=== PATIENT | male | born 1995 | race Caucasian/White ===

== ENCOUNTER 2023-11-02 13:20 | Emergency (ER) | payer BC, OTHER ==
[~2023-11-02] VITALS: Ht 172.7 cm; Wt 82.1 kg
[2023-11-02 13:24] VITALS: O2SAT 99
[2023-11-02 14:09] LABS: BASOPHILS # (AUTO) 0.3 K/UL (0.0-0.2); BASOPHILS % (AUTO) 2.5 % (0.0-2.0); EOSINOPHILS # (AUTO) 0.2 K/uL (0.0-0.7); EOSINOPHILS % (AUTO) 1.6 % (0.0-7.0); HEMATOCRIT 47.1 % (36.7-47.1); HEMOGLOBIN 15.7 g/dL (12.5-16.3); LYMPHOCYTES % (AUTO) 18.6 % (20.5-51.5); MEAN CORPUSCULAR HEMOGLOBIN 27.9 uug (23.8-33.4); MEAN CORPUSCULAR HGB CONC 33 g/dL (32.5-36.3); MEAN CORPUSCULAR VOLUME 83.7 fL (73.0-96.2); MONOCYTES # (AUTO) 0.7 K/uL (0.1-1.30); MONOCYTES % (AUTO) 6.8 % (0.0-11.0); NEUTROPHILS # (AUTO) 7.7 K/uL (1.8-8.9); NEUTROPHILS % (AUTO) 70.5 % (38.5-71.5); PLATELET COUNT (AUTO) 160 K/uL (152-348); RED BLOOD CELL COUNT(AUTO) 5.62 MIL/uL (4.06-5.63); RED CELL DISTRIBUTION WIDTH 13.5 % (12.1-16.2); WHITE BLOOD COUNT (AUTO) 10.9 K/uL (3.6-10.2)
[2023-11-02 14:19] LABS: DIFFERENTIAL COMMENT 1
[2023-11-02 14:20] LABS: CALCIUM 9.1 mg/dL (8.5-10.1); CARBON DIOXIDE 27 mmol/L (21-32); CHLORIDE 100 mmol/L (98-107); CREATININE 0.6 mg/dL (0.6-1.3); POTASSIUM 4.1 mmol/L (3.5-5.1); SODIUM SERUM 135 mmol/L (136-145); UREA NITROGEN, BLOOD 10 mg/dL (7-18)
[2023-11-02 14:24] LABS: GLUCOSE 460 mg/dL (74-106)
[2023-11-02 14:29] LABS: ALANINE AMINOTRANSFERASE 19 U/L (16-63); ALBUMIN 3.3 g/dL (3.4-5.0); ALKALINE PHOSPHATASE 145 U/L (50-136); BILIRUBIN,DIRECT 0.2 mg/dL (0.0-0.2); BILIRUBIN,TOTAL 0.7 mg/dL (0.2-1.0); TOTAL PROTEIN, SERUM 6.9 g/dL (6.4-8.2)
[2023-11-02 14:30] LABS: ASPARTATE AMINOTRANSFERASE < 5 U/L (15-37)
[2023-11-02] MEDS ORDERED: CLINDAMYCIN 600 MG PIGGYBACK**ER OMNI IV ONE (14:33)
[2023-11-02] MEDS ORDERED: LIDOCAINE HCL 1% 20 ML VIAL ONE (14:37)
[2023-11-02] MEDS: CLINDAMYCIN PHOSPHATE IV 600 MG in IV DEXTROSE 5% 100 ML IV ONE (14:41)
[2023-11-02] MEDS ORDERED: INSULIN REGULAR, HUMAN 300 UNIT/3 ML VIAL ONE (14:44)
[2023-11-02] MEDS: INSULIN REGULAR, HUMAN 300 UNIT/3 ML VIAL IV ONE (14:50)
[2023-11-02] MEDS: IV NORMAL SALINE 1000 ML BAG IV ONE (14:56)
[2023-11-02] MEDS: LIDOCAINE HCL 1% 20 ML VIAL TP ONE (14:57)
[2023-11-02] MEDS ORDERED: NEOMY/BACITRA/POLYMYXIN B OINT UD PACKET TP ONE (15:14)
[2023-11-02] MEDS: NEOMY/BACITRA/POLYMYXIN B OINT UD PACKET TP ONE (15:15)
[2023-11-02] MEDS ORDERED: CLIN300C3 PO (15:16)
[2023-11-02] MEDS ORDERED: MUPI22OI2 TP (15:16)
[2023-11-02] MEDS ORDERED: METF-495 PO (15:54)
== END 2023-11-02 16:05 | disposition home or self-care (01) ==
LOC: ER 13:20
DX: L03.211 Cellulitis of face (principal); L02.01 Cutaneous abscess of face; E10.65 Type 1 diabetes mellitus with hyperglycemia; Z79.899 Other long term (current) drug therapy; Z88.8 Allergy status to other drugs, medicaments and biological substances
CPT/HCPCS: 99284; 96365; 10060; 80076; 80048; 85025; 84145; 85730; 87040 ×2; 84484; 36415; 83605; J3490 ×3; J7040; A4606; A4663; J1815